=== PATIENT | male | born 1960 | race Caucasian/White ===

== ENCOUNTER 2021-06-05 12:51 | Emergency (ER) | payer BC ==
[~2021-06-05] VITALS: Ht 188 cm; Wt 78.0 kg
[2021-06-05] MEDS ORDERED: ATORVASTATIN CA40 MG PO (13:23)
== END 2021-06-05 14:11 | disposition home or self-care (01) ==
LOC: ER 12:51
DX: J02.8 Acute pharyngitis due to other specified organisms (principal)